=== PATIENT | female | born 1980 | race Caucasian/White ===

== ENCOUNTER 2017-03-10 15:56 | Emergency (ER) | payer OTHER ==
[~2017-03-10] VITALS: Ht 162.6 cm; Wt 59.0 kg
[~2017-03-10 15:56] MED LIST: ABILIFY2 MG; ADVAIR 250-501 EACH IH; ALBUTEROL SULF8.5 GM IH; ALBUTEROL17 G1 IH; AMOXICILLIN500 MG PO; AQUAPHOR OINTM105 GM TP; ATARAX,VISTARIL25 MG PO; Advair 250/50 Diskus IH; CEFTIN500 MG PO; CLONAZEPAM0.5 MG; CLONAZEPAM0.5 MG PO; CLONAZEPAM1 MG PO; COMBIVENT RESPIM4 GM IH; COMBIVENT200 INHALA IH; Combivent IH; DISKETS40 MG PO; FLEXERIL10 MG PO; FLUOXETINE HCL20 MG; FLUOXETINE HCL40 MG PO; FLUOXETINE HCL60 MG PO; GABAPENTIN300 MG PO; HYCODAN SYRUP480 ML PO; KlonoPIN PO; LEVAQUIN500 MG PO; METHADONE10 MG/1 M1 PO; METHADOSE10 MG/1 ML PO; MUCINEX D ER T1 EACH PO; NICOTINE PATCH TD; ONDANSETRON ODT4 MG PO; PERCOCET 5/31 TABLET PO; PREDNISONE PO; PREDNISONE10 MG PO; PREDNISONE20 MG PO; PREDNISONE50 MG PO; PROVENTIL,2.5 MG/0.5 IH; PROVENTIL,2.5 MG/3 M IH; PROZAC40 MG; SPIRIVA1 INHALATI IH; SYMBICORT IH; TRAZODONE HCL50 MG PO; TYLENOL WITH C1 EACH PO; VALIUM2 MG PO; VENTOLIN HFA18 GM IH; VICODIN 5-3001 EACH PO; VICODIN,LORT1 TABLET PO; VIIBRYD40 MG PO; WELLBUTRIN XL300 MG PO; ZITHROMAX Z-PA250 MG PO
[2017-03-10] MEDS ORDERED: NAPROXEN500 MG PO (19:08)
[2017-03-10] MEDS ORDERED: NORCO 5/3251 TABLET PO (19:08)
[2017-03-10] MEDS ORDERED: SKELAXIN800 MG PO (19:08)
[2017-03-10 19:19] VITALS: BP 110/77
== END 2017-03-10 19:23 | disposition home or self-care (01) ==
LOC: EME 15:56
DX: S16.1XXA Strain of muscle, fascia and tendon at neck level, initial encounter (principal); S40.012A Contusion of left shoulder, initial encounter; V49.40XA Driver injured in collision with unspecified motor vehicles in traffic accident, initial encounter; Y92.481 Parking lot as the place of occurrence of the external cause; F17.200 Nicotine dependence, unspecified, uncomplicated; Z88.1 Allergy status to other antibiotic agents
CPT/HCPCS: 71020; 73030; 99281; 99285; J1885; Q0169

== ENCOUNTER 2017-06-09 15:31 | Emergency (ER) | payer OTHER ==
[~2017-06-09] VITALS: Ht 162.6 cm; Wt 59.4 kg
[~2017-06-09 15:31] MED LIST changes: +NAPROXEN500 MG PO; +NORCO 5/3251 TABLET PO; +SKELAXIN800 MG PO
[2017-06-09] MEDS ORDERED: FLEXERIL10 MG PO (17:37)
[2017-06-09] MEDS ORDERED: NAPROSYN500 MG PO (17:37)
[2017-06-09 17:45] VITALS: BP 149/91
== END 2017-06-09 17:45 | disposition home or self-care (01) ==
LOC: EME 15:31
DX: R51 Headache (principal); M62.838 Other muscle spasm; V89.2XXA Person injured in unspecified motor-vehicle accident, traffic, initial encounter; Z88.1 Allergy status to other antibiotic agents
CPT/HCPCS: 99281; 99284; J1885

== ENCOUNTER 2017-09-17 17:41 | Emergency (ER) | payer OTHER ==
[~2017-09-17] VITALS: Ht 160 cm; Wt 60.0 kg
[~2017-09-17 17:41] MED LIST changes: +NAPROSYN500 MG PO
[2017-09-17 18:59] LABS: BASOPHIL (%) 0.3 % (0-1); EOSINOPHIL (%) 3.9 % (0-5); EOSINOPHIL COUNT 0.4 K/uL (0-0.3); HEMATOCRIT 37.6 % (36.0-46.0); IMMATURE GRANULOCYTE (%) 0.4 % (0.0-0.7); LYMPHOCYTE (%) 37.4 % (15-42); LYMPHOCYTE COUNT 3.9 K/uL (1.0-2.8); MCHC 31.9 G/DL (30.0-36.0); MCV 87.6 FL (83-99); MONOCYTE (%) 7.8 % (3-12); MONOCYTE COUNT 0.8 K/uL (0-0.8); NEUTROPHIL (%) 50.2 % (45-76); NEUTROPHIL COUNT 5.3 K/uL (1.8-6.4); PLATELET COUNT 282 K/uL (156-360); RBC DIS.WIDTH-CV 13.1 % (11.8-14.6); RED BLOOD COUNT 4.29 M/uL (3.80-5.20); WHITE BLOOD COUNT 10.5 K/uL (4.1-10.2)
[2017-09-17 19:19] LABS: COCAINE NEGATIVE (150 ng/mL); METHAMPHETAMINE NEGATIVE (500 ng/mL); PHENCYCLIDINE NEGATIVE (25 ng/mL); THC CANNABINOIDS PRESUMPTIVE POSITIVE (50 ng/mL)
[2017-09-17 19:20] LABS: AMPHETAMINE NEGATIVE (500 ng/mL); BARBITURATES NEGATIVE (200 ng/mL); BENZODIAZEPINES PRESUMPTIVE POSITIVE (150 ng/mL); BUPRENORPHINE NEGATIVE (10 ng/mL); METHADONE PRESUMPTIVE POSITIVE (200 ng/mL); OPIATES (MORPHINE) NEGATIVE (100 ng/mL); OXYCODONE NEGATIVE (100 ng/mL); PROPOXYPHENE NEGATIVE (300 ng/mL); TRICYCLIC ANTIDEPRESSANTS PRESUMPTIVE POSITIVE (300 ng/mL)
[2017-09-17 19:22] LABS: ALBUMIN 3.7 g/dL (3.2-4.8); CHLORIDE 101 mEq/L (99-109); MAGNESIUM 2.1 mg/dL (1.3-2.7); SODIUM 138 mEq/L (136-147)
[2017-09-17 19:24] LABS: GLUCOSE 91 mg/dL (70-99); TOTAL PROTEIN 6.7 g/dL (6.4-8.3)
[2017-09-17 19:26] LABS: TOTAL BILIRUBIN 0.2 mg/dL (0.0-1.0)
[2017-09-17 19:27] LABS: SERUM ETHYL ALCOHOL < 10 mg/dL
[2017-09-17 19:28] LABS: CREATININE 1.1 mg/dL (0.6-1.3); GFR ESTIMATE (CALCULATED) > 59 mL/min/
[2017-09-17 19:29] LABS: ALKALINE PHOSPHATASE 58 IU/L (3-129); AST (GOT) 16 IU/L (2-34)
[2017-09-17 19:30] LABS: UREA NITROGEN (BUN) 9 mg/dL (9-23)
[2017-09-17 19:31] LABS: SALICYLATE < 5.0 MG/DL (15-30)
[2017-09-17 19:32] LABS: ACETAMINOPHEN (TYLENOL) < 10 mcg/mL (10-30); ALT (GPT) 16 IU/L (3-49)
[2017-09-17 19:45] LABS: BENZODIAZEPINES, URINE SCREEN POSITIVE (200 ng/mL)
[2017-09-17] MEDS ORDERED: MOTRIN600 MG PO (21:24)
[2017-09-17] MEDS ORDERED: PEN-VEE K,VEET500 MG PO (21:24)
[2017-09-17 21:33] VITALS: BP 121/62
== END 2017-09-17 21:33 | disposition home or self-care (01) ==
LOC: EME 17:41
PROVIDERS: Emergency Medicine
DX: F32.9 Major depressive disorder, single episode, unspecified (principal); K02.9 Dental caries, unspecified; F43.10 Post-traumatic stress disorder, unspecified; F41.0 Panic disorder [episodic paroxysmal anxiety]; J45.909 Unspecified asthma, uncomplicated; F17.200 Nicotine dependence, unspecified, uncomplicated; Z88.1 Allergy status to other antibiotic agents; Z90.2 Acquired absence of lung [part of]
CPT/HCPCS: 80053; 83735; 84703; 84999; 85025; 90837; 99281; 99285; G0480

== ENCOUNTER → 2018-03-10 | Outpatient (CLI) | payer OTHER ==
[~2018-03-10] MED LIST changes: +MOTRIN600 MG PO; +PEN-VEE K,VEET500 MG PO
== END | disposition home or self-care (01) ==
LOC: RES 07:58
DX: Z02.71 Encounter for disability determination (principal)
CPT/HCPCS: 94060; 94729; 94760